=== PATIENT | male | born 1960 | race Caucasian/White ===

== ENCOUNTER 2025-08-29 14:45 | Outpatient (AMB) | payer MEDICARE, BC, SELFPAY ==
--- NOTE | 2025-08-29 14:54 | MHC.OFFVIS ---
Intake Visit Reasons: 6m pd Allergies No Known Allergies Allergy (Verified 05/29/25 12:48) Medication List - Last Reconciled 08/29/25 by Pedro Palacios MD carbidopa-levodopa 25-100 mg (Sinemet) 1.5 tabs orally q3h for total of 6 doses/day; 90 days entacapone 200 mg PO .6x/day 90 days fenofibrate 54 mg PO DAILY hydrochlorothiazide 25 mg PO DAILY lisinopril 20 mg PO DAILY lorazepam 0.5 mg PO BEDTIME PRN rasagiline 1 mg PO DAILY 90 days sildenafil (Viagra) 25 mg PO DAILY PRN HPI Comments Details: Tremors getting worse. More tremors to right hand. He felt carbidopa-levodopa was wearing off before next dose due. Suggested moving drugs to q 3 hs during waking hours and q 4 at night. Discussed the subcut. infusion of L dopa. He had some questions about medications and DBS. He was taking medication every 4 hours and was sometimes missing dose during the night because he was sleeping. He tried to set alarm at 4am to wake up and take medication. No difficulty eating, drinking, or swallowing. No difficulty standing from chair or turning in bed. He was exercising every other day. No falls. Brain fog at times throughout the day and anxious at times. Occasionally drags right leg and shuffles at times. Painful cramps in toes at night. Getting cramps in right foot. Tries to walk daily and that makes it feel better. 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 Has been walking and exercising since [facility]. Erectile dysfunction. PD is slowly progressing. He centeno sPD since Nov 2015. Functioning well. At times he feels he is shuffling. Occasional slight swallowing problems. Slightly slower in tying shoes. Right side is not as flexible. Does not significantly impair function. Dragging right leg more on walking. Right hip aches on and off. Some trouble with handling remote control buttons. Tremor of the right hand since 2015. He feels that his handwriting is become smaller and shaky and that the coordination in the right hand is not as good as before. He also feels that he sometimes drags his right leg which feels stiffer. He has no major problems in the left side. The tremor increases significantly if he is upset and nervous. He has no trouble getting in and out of the chair, and no trouble turning in bed. He is walking slower and not swinging right arm as much. [facility], [facility] Medical History (Updated 08/29/25 @ 14:58 by Pedro Palacios MD) Hypercholesteremia HTN (hypertension) Review of Systems Const Details: General/Constitutional:? Change in appetitedenies.? Chillsdenies.? Fatiguedenies.? Feverdenies.? Weight gaindenies.? Weight lossdenies. ???Sleep:? Difficulty getting to sleepdenies.? Difficulty maintaining sleepdenies?.? Urge to move legsdenies.? Teeth grindingdenies.? Shouting or Kicking during sleepdenies.? Abnormal behavior during sleepdenies.? Excessive sleepdenies.? Snoringdenies.? Daytime sleepinessdenies. ???Respiratory:? Shortness of breathdenies.? Chest paindenies.? Coughdenies. ???Cardiovascular:? Chest pain at restdenies.? Chest pain with exertiondenies.? Claudicationdenies.? Dizzinessdenies.? Fluid accumulation in the legsdenies.? Irregular heartbeatdenies.? Palpitationsdenies. ???Gastrointestinal:? Abdominal paindenies.? Constipationdenies.? Diarrheadenies.? Difficulty swallowingdenies.? Heartburndenies.? Nauseadenies.? Rectal bleedingdenies. ???Genitourinary:? Frequent urinationdenies.? Urgencydenies.? Incontinencedenies.? Erectile Dysfunctiondenies. ???Musculoskeletal:? Neck paindenies.? Back paindenies.? Muscle achesdenies.? Painful jointsdenies.? Sciaticadenies.? Weaknessdenies. ???Neurologic:? Difficulty swallowingdenies.? Balance difficultydenies.? Coordinationnormal.? Difficulty speakingdenies.? Dizzinessdenies.? Faintingdenies.? Gait abnormalitydenies.? Headachedenies.? Loss of strengthdenies.? Loss of use of extremitydenies.? Low back paindenies.? Memory lossdenies.? Seizuresdenies.? Ticsdenies.? Tingling/Numbnessdenies.? Transient loss of visiondenies.? Tremoradmits. ???Psychiatric:? Anxietyadmits.? Auditory/visual hallucinationsdenies.? Delusionsdenies.? Depressed mooddenies.? Stressorsdenies.? Substance abusedenies.? Suicidal thoughtsdenies. Physical Exam Neuro Other: Neurological: Abnormal neurological findings:??Moderate?intermittent RUE tremor. No dyskinesia. Slightly stooped posture. Decreased arm swing on the right side. Intermittent slight resting tremor of the right thumb. Mild mask facies. Handwriting is small with micrographia. Decreased amplitude of finger tapping movements on the right. Mild increase in tone in the right upper extremity.?Mental Status:??alert and oriented X 3,?Normal attention, orientation, memory and affect.?Cranial Nerves:??Pupils are equal, round and reactive to light. Fundoscopy shows normal disc bilaterally. External occular muscles are intact. Visual benedict are full, no ptosis. Face is symmetrical, no facial weakness or droop. Facial sensations are normal. Tongue protrudes in midline. Palate elevates symmetrically. Shoulder shrugging is normal..?Motor Examination:??Normal muscle tone, bulk and strength,?No atrophy or fasciculations,?No drift of the extended upper extremities,?Deep tendon reflexes are 2+?,?Plantars are flexor?.?Straight Leg Raising:??90 degrees.?Sensory Exam:??Normal light touch, temperature, pinprick, vibration and joint-position sensations?,?Rhomberg sign is absent.?Coordination:??no ataxia,?no titubation,?[id number], [id number] test and rapid alternating movements were normal.?Gait Exam:??Within normal limits.?Cerebellar Signs:??[id number] and [id number]-[id number] is normal,?no dysdiadochokinesia?.?Extrapyramidal System:??As above. No propulsion or retropulsion.?Speech:??Normal,?no dysphasia or dysarthria..? Mini Mental Status Exam: Level of Consciousness:??Alert.?Orientation:??Knows correct year, month, date, day and season,?Knows correct city, county and state. Knows correct location and floor.?Registration:??Able to register 3 objects.?Attention:??Serial 7's performed accurately.?Recall:??Able to recall 3 out of 3 objects.?Language:??Normal spontaneous speech, fluency, repetition,naming, comprehension, reading and writing.?Total Score:??30/30.? General Examination: GENERAL APPEARANCE:??normal,?in no acute distress.?HEART:??S1, S2 normal,?no murmurs.?LUNGS:??clear anteriorly and posteriorly.?MUSCULOSKELETAL:??normal.?EXTREMITIES:??no edema.?PSYCH:??alert, oriented,?cognitive function intact,?cooperative with exam.? Assessment & Plan Assessment & Plan (1) Idiopathic Parkinson's disease: Code(s): G20 - Parkinson's disease Category: Medical Plan change sinimet and entacapone to 7 doses a day : every 3 hrs while awake and every 4 hrs at night. Will consider about SC infusion Coding Level of Care Code Est Pt Level 5 (84670) Diagnoses Idiopathic Parkinson's disease G20
== END 2025-08-29 15:25 | disposition home or self-care (01) ==
LOC: HO.HSM 14:46
PROVIDERS: PCP Internal Medicine; Referring Provider Internal Medicine; Visit Provider Psychiatry & Neurology Neurology
DX: G20.B1 Parkinson's disease with dyskinesia, without mention of fluctuations (principal)
CPT/HCPCS: 99215

== ENCOUNTER → 2025-08-29 14:45 | Outpatient (BNVA) | payer MEDICARE, BC, SELFPAY | PROVIDERS: PCP Internal Medicine; Referring Provider Internal Medicine; Visit Provider Psychiatry & Neurology Neurology | DX: G20.C Parkinsonism, unspecified (principal) | CPT/HCPCS: 99212 ==